=== PATIENT | female | born 1960 | race Two or more races ===

== ENCOUNTER → 2017-04-24 | Emergency (ER) | payer OTHER ==
[~2017-04-24] VITALS: Ht 162.6 cm; Wt 65.8 kg
[~2017-04-24] MED LIST: FOSAMAX70 MG
== END | disposition home or self-care (01) ==
LOC: ER 10:19
DX: K29.70 Gastritis, unspecified, without bleeding (principal); R10.13 Epigastric pain

== ENCOUNTER 2018-06-06 16:39 | Outpatient (CLI) | payer OTHER ==
[2018-06-07] MEDS ORDERED: CELEBREX200MG PO (08:55)
[2018-06-07] MEDS ORDERED: ZANTAC300 MG PO (08:55)
[2018-06-07] MEDS ORDERED: OXYCONTIN10 M1 PO (08:55)
== END 2018-06-06 16:44 | disposition home or self-care (01) ==
LOC: LAB 16:39
DX: D64.89 Other specified anemias (principal); E88.89 Other specified metabolic disorders; D68.8 Other specified coagulation defects; N39.0 Urinary tract infection, site not specified; Z22.322 Carrier or suspected carrier of Methicillin resistant Staphylococcus aureus; E55.9 Vitamin D deficiency, unspecified; E13.9 Other specified diabetes mellitus without complications; Z76.89 Persons encountering health services in other specified circumstances; I49.8 Other specified cardiac arrhythmias

== ENCOUNTER 2018-06-07 06:52 | Day surgery (SDC) | payer OTHER ==
[2018-06-07] MEDS ORDERED: CELEBREX200MG PO (08:55)
[2018-06-07] MEDS ORDERED: ZANTAC300 MG PO (08:55)
[2018-06-07] MEDS ORDERED: OXYCONTIN10 M1 PO (08:55)
== END 2018-06-07 20:10 | disposition home or self-care, planned readmission (81) ==
LOC: CIR.AMB 06:52
DX: S82.031A Displaced transverse fracture of right patella, initial encounter for closed fracture (principal); M22.11 Recurrent subluxation of patella, right knee; M12.261 Villonodular synovitis (pigmented), right knee

== ENCOUNTER → 2018-09-14 08:23 | Outpatient (CLI) | payer OTHER ==
[~2018-09-14 08:23] MED LIST changes: +CELEBREX200MG PO; +OXYCONTIN10 M1 PO; +ZANTAC300 MG PO
== END | disposition home or self-care (01) ==
LOC: LAB 08:23
DX: D55.8 Other anemias due to enzyme disorders (principal); M85.88 Other specified disorders of bone density and structure, other site; E21.2 Other hyperparathyroidism

== ENCOUNTER → 2018-12-26 | Outpatient (CLI) | payer OTHER | END | disposition home or self-care (01) | LOC: RAD 14:07 | DX: M25.551 Pain in right hip (principal) ==

== ENCOUNTER 2018-12-27 08:02 | Outpatient (CLI) | payer OTHER ==
[~2018-12-27] VITALS: Ht 152.4 cm; Wt 68.0 kg
== END 2018-12-27 09:00 | disposition home or self-care (01) ==
LOC: OFIC 805 08:02
DX: H90.3 Sensorineural hearing loss, bilateral (principal); R42 Dizziness and giddiness; H61.23 Impacted cerumen, bilateral

== ENCOUNTER 2019-06-24 12:04 | Outpatient (CLI) | payer OTHER | END 2019-06-24 16:00 | disposition home or self-care (01) | LOC: OFIC 805 12:04 | DX: H90.3 Sensorineural hearing loss, bilateral (principal); H81.11 Benign paroxysmal vertigo, right ear ==

== ENCOUNTER 2019-08-13 09:43 | Outpatient (CLI) | payer OTHER | END 2019-08-13 10:14 | disposition home or self-care (01) | LOC: RAD 09:43 | PROVIDERS: ATTEND Specialist | DX: M54.5 Low back pain (principal); M79.605 Pain in left leg; M79.604 Pain in right leg; E78.2 Mixed hyperlipidemia; R73.03 Prediabetes; R20.8 Other disturbances of skin sensation; Z13.820 Encounter for screening for osteoporosis; G47.8 Other sleep disorders; M81.0 Age-related osteoporosis without current pathological fracture; R73.01 Impaired fasting glucose; Z12.39 Encounter for other screening for malignant neoplasm of breast; N64.59 Other signs and symptoms in breast; Z80.8 Family history of malignant neoplasm of other organs or systems; Z12.31 Encounter for screening mammogram for malignant neoplasm of breast ==

== ENCOUNTER 2019-08-13 12:13 | Outpatient (CLI) | payer OTHER | END 2019-08-13 13:02 | disposition home or self-care (01) | LOC: NUCLEAR 12:13 | PROVIDERS: ATTEND Specialist | DX: M81.0 Age-related osteoporosis without current pathological fracture (principal); M54.5 Low back pain; M79.605 Pain in left leg; M79.604 Pain in right leg; E78.2 Mixed hyperlipidemia; R73.03 Prediabetes; R20.8 Other disturbances of skin sensation; Z13.820 Encounter for screening for osteoporosis; G47.8 Other sleep disorders; R73.01 Impaired fasting glucose; Z12.39 Encounter for other screening for malignant neoplasm of breast; N64.59 Other signs and symptoms in breast; Z80.3 Family history of malignant neoplasm of breast ==

== ENCOUNTER 2019-08-26 13:27 | Outpatient (CLI) | payer OTHER | END 2019-08-26 13:38 | disposition home or self-care (01) | LOC: RAD 13:27 | PROVIDERS: ATTEND Physical Medicine & Rehabilitation | DX: M54.2 Cervicalgia (principal) ==

== ENCOUNTER 2019-09-17 11:36 | Outpatient (CLI) | payer OTHER | END 2019-09-17 11:40 | disposition home or self-care (01) | LOC: MRI 11:36 | PROVIDERS: ATTEND Physical Medicine & Rehabilitation | DX: M54.2 Cervicalgia (principal); M54.12 Radiculopathy, cervical region | CPT/HCPCS: 72141 ==

== ENCOUNTER 2020-02-27 14:22 | Outpatient (CLI) | payer OTHER | END 2020-02-27 14:30 | disposition home or self-care (01) | LOC: RAD 14:22 | PROVIDERS: ATTEND Orthopaedic Surgery | DX: M25.551 Pain in right hip (principal); M16.11 Unilateral primary osteoarthritis, right hip ==

== ENCOUNTER → 2020-02-27 | Outpatient (CLI) | payer OTHER | END | disposition home or self-care (01) | LOC: OFIC 805 13:20 | PROVIDERS: ATTEND Otolaryngology Otology & Neurotology | DX: H81.12 Benign paroxysmal vertigo, left ear (principal); H61.23 Impacted cerumen, bilateral ==

== ENCOUNTER 2020-03-12 11:58 | Emergency (ER) | payer OTHER ==
[~2020-03-12] VITALS: Ht 162.6 cm; Wt 68.0 kg
[2020-03-12] MEDS ORDERED: KETO10TA2 PO (14:55)
[2020-03-12] MEDS ORDERED: VOLTAREN100 GM TOP (14:55)
[2020-03-12] MEDS ORDERED: SKELAXIN800 MG PO (14:55)
== END 2020-03-12 14:57 | disposition home or self-care (01) ==
LOC: ER 11:58
DX: M77.8 Other enthesopathies, not elsewhere classified (principal); M25.511 Pain in right shoulder

== ENCOUNTER 2020-04-15 11:57 | Emergency (ER) | payer OTHER ==
[~2020-04-15] VITALS: Ht 162.6 cm; Wt 68.0 kg
[~2020-04-15 11:57] MED LIST changes: +KETO10TA2 PO; +SKELAXIN800 MG PO; +VOLTAREN100 GM TOP
[2020-04-15] MEDS ORDERED: PROTONIX20 MG (12:35)
== END 2020-04-15 16:21 | disposition home or self-care (01) ==
LOC: ER 11:57
DX: K29.70 Gastritis, unspecified, without bleeding (principal)

== ENCOUNTER 2020-05-27 07:53 | Outpatient (CLI) | payer OTHER ==
[~2020-05-27 07:53] MED LIST changes: +PROTONIX20 MG
== END 2020-05-27 08:06 | disposition home or self-care (01) ==
LOC: TOM 07:53
PROVIDERS: ATTEND Internal Medicine Gastroenterology
DX: K29.30 Chronic superficial gastritis without bleeding (principal); B96.81 Helicobacter pylori [H. pylori] as the cause of diseases classified elsewhere; R10.10 Upper abdominal pain, unspecified; R93.3 Abnormal findings on diagnostic imaging of other parts of digestive tract; R19.5 Other fecal abnormalities

== ENCOUNTER 2020-06-07 13:54 | Outpatient (CLI) | payer OTHER | END 2020-06-07 15:22 | disposition home or self-care (01) | LOC: OFIC 805 13:54 | PROVIDERS: ATTEND Otolaryngology Otology & Neurotology | DX: H90.3 Sensorineural hearing loss, bilateral (principal); H81.11 Benign paroxysmal vertigo, right ear; H61.21 Impacted cerumen, right ear ==

== ENCOUNTER 2020-09-21 13:26 | Outpatient (CLI) | payer OTHER | END 2020-09-21 13:33 | disposition home or self-care (01) | LOC: NUCLEAR 13:26 | DX: M81.0 Age-related osteoporosis without current pathological fracture (principal) ==

== ENCOUNTER 2020-09-21 13:59 | Outpatient (CLI) | payer OTHER | END 2020-09-21 14:04 | disposition home or self-care (01) | LOC: MRI 13:59 | PROVIDERS: ATTEND Physical Medicine & Rehabilitation | DX: M54.5 Low back pain (principal); M54.16 Radiculopathy, lumbar region | CPT/HCPCS: 72148 ==

== ENCOUNTER 2020-11-11 12:05 | Outpatient (CLI) | payer OTHER | END 2020-11-11 12:15 | disposition home or self-care (01) | LOC: RAD 12:05 | PROVIDERS: ATTEND Orthopaedic Surgery | DX: M25.551 Pain in right hip (principal); M25.552 Pain in left hip; Z76.89 Persons encountering health services in other specified circumstances; R07.89 Other chest pain ==

== ENCOUNTER 2021-05-16 07:20 | Outpatient (CLI) | payer OTHER | END 2021-05-16 07:40 | disposition home or self-care (01) | LOC: MAMO-SONO 07:20 | DX: Z12.31 Encounter for screening mammogram for malignant neoplasm of breast (principal); Z12.11 Encounter for screening for malignant neoplasm of colon; Z12.39 Encounter for other screening for malignant neoplasm of breast ==

== ENCOUNTER 2021-06-18 08:11 | Emergency (ER) | payer OTHER ==
[~2021-06-18] VITALS: Ht 162.6 cm; Wt 68.0 kg
[2021-06-18] MEDS ORDERED: [UNRECOGNIZED DRUG - OTHER] PO (08:19)
== END 2021-06-18 12:00 | disposition home or self-care (01) ==
LOC: ER 08:11
DX: B34.8 Other viral infections of unspecified site (principal); Z20.822 Contact with and (suspected) exposure to COVID-19

== ENCOUNTER 2021-07-25 13:52 | Outpatient (CLI) | payer OTHER ==
[~2021-07-25 13:52] MED LIST changes: +[UNRECOGNIZED DRUG - OTHER] PO
== END 2021-07-25 14:01 | disposition home or self-care (01) ==
LOC: RAD 13:52
DX: M25.561 Pain in right knee (principal); M25.562 Pain in left knee

== ENCOUNTER 2021-10-06 12:21 | Outpatient (CLI) | payer OTHER | END 2021-10-06 12:23 | disposition home or self-care (01) | LOC: MRI 12:21 | PROVIDERS: ATTEND Physical Medicine & Rehabilitation | DX: M54.2 Cervicalgia (principal) | CPT/HCPCS: 72141 ==

== ENCOUNTER 2021-10-07 07:28 | Outpatient (CLI) | payer OTHER | END 2021-10-07 07:30 | disposition home or self-care (01) | LOC: NUCLEAR 07:28 | PROVIDERS: ATTEND Internal Medicine Cardiovascular Disease | DX: R07.89 Other chest pain (principal); I25.10 Atherosclerotic heart disease of native coronary artery without angina pectoris | CPT/HCPCS: 78452; 93017; A9500; J0153 ==

== ENCOUNTER 2021-10-19 08:26 | Outpatient (CLI) | payer OTHER ==
[2021-10-19] MEDS ORDERED: TOPAMAX50 MG PO (12:59)
[2021-10-19] MEDS ORDERED: CYMBALTA30 MG PO (13:00)
[2021-10-19] MEDS ORDERED: CRESTOR10 MG PO (13:01)
[2021-10-19] MEDS ORDERED: BUSPIRONE HCL5 MG PO (13:02)
== END 2021-10-19 08:52 | disposition home or self-care (01) ==
LOC: LAB 08:26
PROVIDERS: ATTEND Orthopaedic Surgery
DX: D64.9 Anemia, unspecified (principal); E88.9 Metabolic disorder, unspecified; D68.8 Other specified coagulation defects; N39.0 Urinary tract infection, site not specified; A49.02 Methicillin resistant Staphylococcus aureus infection, unspecified site; E11.9 Type 2 diabetes mellitus without complications; I49.9 Cardiac arrhythmia, unspecified; I10 Essential (primary) hypertension; E78.1 Pure hyperglyceridemia; Z76.89 Persons encountering health services in other specified circumstances

== ENCOUNTER 2021-10-21 09:45 | Inpatient (IN) | payer OTHER ==
[~2021-10-21] VITALS: Wt 70.3 kg
[~2021-10-21 09:45] MED LIST changes: +BUSPIRONE HCL5 MG PO; +CRESTOR10 MG PO; +CYMBALTA30 MG PO; +TOPAMAX50 MG PO
[2021-10-21] MEDS ORDERED: CYMBALTA30 MG PO (12:34)
[2021-10-21] MEDS ORDERED: TOPAMAX50 MG PO (12:35)
== END 2021-11-02 20:12 | DRG 470 ==
LOC: SURG 10-25 09:45 → SURH 10-31 06:12 → O/R 10-31 06:12 → SURG 10-31 07:00 → SURH 10-31 10:35
PROVIDERS: ADMIT Orthopaedic Surgery; ATTEND Orthopaedic Surgery
PROC: 0SR902Z Replacement of Right Hip Joint with Metal on Polyethylene Synthetic Substitute, Open Approach (ICD-10-PCS; principal; 2021-10-31 07:00)
DX: M16.11 Unilateral primary osteoarthritis, right hip (principal); G40.802 Other epilepsy, not intractable, without status epilepticus; Z20.822 Contact with and (suspected) exposure to COVID-19; Z96.641 Presence of right artificial hip joint

== ENCOUNTER 2021-10-28 14:09 | Outpatient (CLI) | payer OTHER | END 2021-10-28 15:43 | disposition home or self-care (01) | LOC: LAB 14:09 | PROVIDERS: ATTEND Orthopaedic Surgery | DX: Z03.818 Encounter for observation for suspected exposure to other biological agents ruled out (principal) ==

== ENCOUNTER 2022-03-28 15:21 | Outpatient (CLI) | payer OTHER | END 2022-03-28 15:30 | disposition home or self-care (01) | LOC: RAD 15:21 | PROVIDERS: ATTEND Physical Medicine & Rehabilitation | DX: M16.12 Unilateral primary osteoarthritis, left hip (principal); Z96.649 Presence of unspecified artificial hip joint ==

== ENCOUNTER 2022-04-27 07:05 | Outpatient (CLI) | payer OTHER | END 2022-04-27 07:07 | disposition home or self-care (01) | LOC: NUCLEAR 07:05 | PROVIDERS: ATTEND Physical Medicine & Rehabilitation | DX: M25.551 Pain in right hip (principal); Z96.641 Presence of right artificial hip joint | CPT/HCPCS: 78315; A9503 ==

== ENCOUNTER 2022-07-11 10:24 | Outpatient (CLI) | payer OTHER | END 2022-07-11 10:48 | disposition home or self-care (01) | LOC: MRI 10:24 | DX: R56.9 Unspecified convulsions (principal); G31.84 Mild cognitive impairment of uncertain or unknown etiology | CPT/HCPCS: 70551 ==

== ENCOUNTER 2022-09-28 13:38 | Outpatient (CLI) | payer OTHER | END 2022-09-28 13:46 | disposition home or self-care (01) | LOC: NUCLEAR 13:38 | PROVIDERS: ATTEND Orthopaedic Surgery | DX: M81.0 Age-related osteoporosis without current pathological fracture (principal) ==

== ENCOUNTER 2023-03-13 13:44 | Outpatient (CLI) | payer OTHER | END 2023-03-13 13:53 | disposition home or self-care (01) | LOC: RAD 13:44 | PROVIDERS: ATTEND Orthopaedic Surgery | DX: M54.50 Low back pain, unspecified (principal) ==

== ENCOUNTER 2023-08-23 10:39 | Outpatient (CLI) | payer OTHER | END 2023-08-23 11:00 | disposition home or self-care (01) | LOC: MRI 10:39 | PROVIDERS: ATTEND Orthopaedic Surgery | DX: M54.50 Low back pain, unspecified (principal); M51.36 Other intervertebral disc degeneration, lumbar region; Z12.39 Encounter for other screening for malignant neoplasm of breast | CPT/HCPCS: 72148 ==

== ENCOUNTER 2023-08-23 13:44 | Outpatient (CLI) | payer OTHER | END 2023-08-23 13:52 | disposition home or self-care (01) | LOC: LAB 13:44 | PROVIDERS: ATTEND Orthopaedic Surgery | DX: E55.9 Vitamin D deficiency, unspecified (principal); M85.9 Disorder of bone density and structure, unspecified; E56.1 Deficiency of vitamin K ==

== ENCOUNTER 2023-12-12 11:03 | Outpatient (CLI) | payer OTHER | END 2023-12-12 11:07 | disposition home or self-care (01) | LOC: RAD 11:03 | PROVIDERS: ATTEND Physical Medicine & Rehabilitation | DX: M17.11 Unilateral primary osteoarthritis, right knee (principal); M17.12 Unilateral primary osteoarthritis, left knee; M16.12 Unilateral primary osteoarthritis, left hip ==

== ENCOUNTER 2024-07-01 13:59 | Outpatient (CLI) | payer OTHER | END 2024-07-01 14:05 | disposition home or self-care (01) | LOC: MAMO-SONO 13:59 | PROVIDERS: ATTEND Internal Medicine Pulmonary Disease | DX: N63.25 Unspecified lump in the left breast, overlapping quadrants (principal); N63.20 Unspecified lump in the left breast, unspecified quadrant ==

== ENCOUNTER → 2024-11-06 09:25 | Outpatient (CLI) | payer OTHER ==
[2024-11-06 10:38] LABS: BASO % 0.4 % (0.1-1.2); EOS # 0.08 (0.04-0.54); EOS % 1.2 % (0.7-7.0); LYMPH # 2.88 (1.18-3.74); LYMPH % 41.7 % (19.3-53.1); MEAN PLATELET VOLUME 9.90 fl (9.4-12.4); MONO # 0.45 (0.24-0.82); MONO % 6.5 % (4.7-12.5); NEUT # 3.44 (1.56-6.13); NEUT % 49.8 % (34.0-71.1); RED CELL DISTRIBUTION WIDTH 14.3 % (11.6-14.4)
[2024-11-06 10:47] LABS: URINE APPEARANCE Clear; URINE BILIRRUBIN Negative (NEGATIVE); URINE BLOOD Moderate; URINE COLOR Yellow; URINE GLUCOSE Negative (NEGATIVE); URINE KETONE Negative (NEGATIVE); URINE LEUKOCYTE Trace; URINE NITRATE Negative; URINE PROTEIN Trace (NEGATIVE); URINE UROBILINOGEN 0.2 E.U./dl
[2024-11-06 10:48] LABS: URINE BACTERIA 151.1 uL (0.0-1933); URINE EPITHELIAL CELLS 9.8 uL (0.0-38.8); URINE RBC 19.0 uL (0.0-20.8); URINE WBC 19.8 uL (0.0-23.2)
[2024-11-06 10:59] LABS: URINE CAST 1.17 uL (0.0-1.40)
[2024-11-06 11:59] LABS: BUN CREA RATIO 28.0 (7.0-25.0); CREATININE SERUM 0.65 mg/dL (0.55-1.02); GFR 91.19; GLUCOSE FASTING 91.0 mg/dL (65-100); OSMOLALITY SERUM 285.0 MOSM/KG (275-295)
[2024-11-06 12:02] LABS: T4 FREE 0.88 NG/ML (0.76-1.46); TSH 1.46 uIU/mL (0.358-3.74)
== END | disposition home or self-care (01) ==
LOC: LAB 09:25
DX: N39.0 Urinary tract infection, site not specified (principal); R80.9 Proteinuria, unspecified; D64.9 Anemia, unspecified; E11.9 Type 2 diabetes mellitus without complications; E03.9 Hypothyroidism, unspecified